=== PATIENT | male | born 1965 | race Caucasian/White ===

== ENCOUNTER → 2017-01-15 | Outpatient (CLI) | payer OTHER ==
[~2017-01-15] MED LIST: CYCL10TA2 PO; HYDR-2762 PO; IBUP-1060 PO; LISI-334 PO; SIMV10TA3 PO; TRAM50TA PO
--- NOTE | 2017-01-16 09:26 | PAIN ---
DATE OF SERVICE: 01/15/2017 PROGRESS NOTE FOR PAIN CLINIC DIAGNOSES: Lumbar radiculopathy with lumbar spinal stenosis, lumbar herniated disk. HISTORY OF PRESENT ILLNESS: The patient is a 51-year-old male who returns for followup, last seen in 10/2015. The patient had undergone epidural steroid injections in the past, did very well with [id number]% improvement and we had temporized him, after that with some Medrol Dosepak and some hydrocodone which he takes only very sparingly. The patient reports that he was doing very well until about the last one month. He stepped off a ladder and missed the last rung on the ladder, landing on his left leg hard ____ his back as well as his left knee and thigh. The patient had some back pain since that time in the low back radiating to the bilateral areas of the gluteus more on the right, actually at this time, but also some numbness in the left leg in the medial aspect of the lower leg as well as in the anterior and medial thigh on the left side. The patient reports sitting from 0 to 6 on a scale of 10, worse with standing and walking, but better with leaning forward, lying down or sitting down. The patient reports it does not awake him from sleep, does not cause any loss of function, but does has some cramping in the lower extremities and gets tight in the low back with the pain recently. The patient reports otherwise no new changes. No new motor or sensory deficits or other complaints. PAST MEDICAL HISTORY: Significant for obesity, hypertension, cigarette smoking, partial replacement of his left knee, and some venous stasis ulcers in the lower leg as well over the past several years. CURRENT MEDICATIONS: Include Flexeril, hydrocodone, simvastatin, lisinopril, tramadol and ibuprofen. ALLERGIES: The patient has no known drug allergies. FAMILY HISTORY: Significant for hypertension only. SOCIAL HISTORY: The patient does not drink alcohol. Quit smoking many years ago, in 1994, when he quit smoking. The patient has two full-time jobs, one in the day and one in the evening, maintains these as well. He is very active with his job, climbing ladders, walking, standing, stooping, and changing positions to a fairly significant extent. REVIEW OF SYSTEMS: The patient's review of systems was updated, positive for those items mentioned in history of present illness. All other systems reviewed and otherwise negative. It is complete, full and well documented on the patient's chart. PHYSICAL EXAMINATION: VITAL SIGNS: The patient's blood pressure 180/93, pulse 69, respirations 18, temperature 97.7 degrees Fahrenheit, height is 5 feet 7 inches, weighs 464 pounds. GENERAL: The patient is awake, alert, oriented, appropriate, very pleasant demeanor. HEENT: Head shows normocephalic, atraumatic. Extraocular movements are intact and symmetrical. Oral cavity, mucous membranes moist and pink. Dentition is intact. NECK: Shows anterior throat supple without palpable lymphadenopathy noted. Swallow reflex is symmetrical. Neck shows full rotational motion of the cervical spine without difficulty including extension and flexion, ____ lateral rotation greater than 45 degrees right and left without difficulty. CHEST: Shows normal on inspection. Breath sounds clear to auscultation bilaterally. HEART: Shows S1 and S2 clear. No murmurs are auscultated. ABDOMEN: Obese, soft, nontender, nondistended. No palpable organomegaly is noted. No rebound or guarding demonstrated. BACK: Shows spine grossly midline. Normal-appearing thoracic kyphosis and some mild flattening of lumbar lordotic curvature. No previous bruises, lesions, rashes or scars are noted. Lumbar paraspinous muscle shows symmetrical on inspection with palpation, is moderately tender, but only in the mid and lower lumbar distribution and lumbar paraspinous muscles only diffusely without radiation, without trigger points. No tenderness over the sacrum or sacroiliac regions. The patient shows good rotational motion both laterally as well as extension and flexion of lumbar spine without difficulty or pain reported. EXTREMITIES: Lower extremities showed deep tendon reflexes 1+/4 in the patellar tendons. Motor exam is approximately 4 on a scale of 5, but equal and symmetrical with dorsiflexion, extension, quadriceps and hamstring flexion. The patient does have an area in the medial left calf that shows some decreased sharp and dull discrimination compared to the rest of the calf and compared to the right side with some numbness in this area and sensation as well. This is roughly from the knee to the ankle on the left side medially only. The patient has some discoloration from hemostasis on both of the lower extremities from the knee down to the ankle as well and is symmetrical. PLAN: Options were discussed with the patient at this time. The patient's old chart was reviewed and his current medication regimen and updated. Current review of systems updated today as well as noted. We will hold on any further injections at this time as he is hoping to avoid this as the pain is not to the point where it was from, the injections were very necessary and helpful. We will try Medrol Dosepak as well as hydrocodone refill 7.5 mg. The patient was given instruction as well as side effects to be aware of each of medications. I encouraged to increase his activity as tolerated and to continue to do stretching exercises as he does throughout his working day already. The patient will follow up if pain returns or becomes worse or more radicular in fashion and was counseled as to this followup as well. EMILY BARRETO MD DR: VIRGIL/marti JOB#: [id number] / [id number]
== END | disposition home or self-care (01) ==
LOC: PNCL 10:10
PROVIDERS: ATTEND Anesthesiology
DX: M54.16 Radiculopathy, lumbar region (principal); M48.06 Spinal stenosis, lumbar region; M51.26 Other intervertebral disc displacement, lumbar region
CPT/HCPCS: 99212

== ENCOUNTER 2018-09-15 21:28 | Emergency (ER) | payer OTHER ==
[~2018-09-15] VITALS: Ht 172.7 cm; Wt 204.1 kg
[2018-09-15 22:48] LABS: BASO # 0.1 x10^3/uL (0.0-0.2); BASO % 1 % (0-3); EOS % 0 % (0-3); HEMATOCRIT 35.2 % (39.0-53.0); HEMOGLOBIN 12.2 g/dL (13.0-17.5); LYMPH # 0.9 x10^3/uL (1.0-4.8); LYMPH % 8 % (24-48); MEAN CORPUSCULAR HEMOGLOBIN 30 pg (25-35); MEAN CORPUSCULAR HGB CONC 35 g/dL (31-37); MEAN CORPUSCULAR VOLUME 87 fL (79-100); MONO # 0.5 x10^3/uL (0.0-1.1); MONO % 4 % (0-9); NEUT % 87 % (31-73); PLATELET COUNT 268 x10^3/uL (140-400); RED BLOOD COUNT 4.04 x10^6/uL (4.30-5.70); RED CELL DISTRIBUTION WIDTH 13.8 % (11.5-14.5); WHITE BLOOD COUNT 11.5 x10^3/uL (4.0-11.0)
[2018-09-15 22:56] LABS: CALCIUM 9.2 mg/dL (8.5-10.1); CREATININE 1.3 mg/dL (0.7-1.3); GFR 58.2; POTASSIUM 4.1 mmol/L (3.5-5.1)
[2018-09-15] MEDS ORDERED: fentaNYL PF VIAL 100 MCG/2 ML VIAL IV ONE (23:00)
[2018-09-15] MEDS ORDERED: LIDO:MAALOX 1:1 20 ML SINGLE DOSE. SWSW ONE (23:00)
[2018-09-15] MEDS ORDERED: IV NORMAL SALINE 1000ML BAG 1,000 ML IV ONE (23:00)
[2018-09-15 23:02] LABS: ALBUMIN 3.4 g/dL (3.4-5.0); ALBUMIN/GLOBULIN RATIO 0.8 (1.0-1.7); TOTAL BILIRUBIN 0.4 mg/dL (0.2-1.0); TOTAL PROTEIN 7.5 g/dL (6.4-8.2)
[2018-09-15 23:13] LABS: % BANDS 2 % (0-9); % BASOS 1 % (0-3); % LYMPHS 6 % (24-48); % MONOS 4 % (0-10); % SEGS 87 % (35-66); PLT ESTIMATE ADEQUATE (ADEQUATE)
--- NOTE | 2018-09-16 00:42 | RAD ---
Clinical History: Right upper quadrant pain Technique: Sonographic examination of the right upper quadrant of the abdomen was performed and multiple static images were obtained. Comparison: none Findings: The liver measures 23 centers in length and is increased echogenicity which further limits ultrasound sensitivity for possible solid liver lesion. Solid mass is not seen. The gallbladder is seen with stones and wall thickening and surrounding fluid. There is no tenderness. The common bile duct is top normal limits in size and measures 6 mm in diameter. The pancreas is not well visualized due to overlying bowel gas but appears within normal limits. The right kidney appears normal and measures 12 cm in length. Impression: 1. Hepatomegaly. 2. Cholecystolithiasis. Probable acute cholecystitis. 3. Fatty infiltration of the liver. Electronically signed by: Mayito Lopez III, MD (09/16/2018 12:39 AM) [facility]
[2018-09-16 01:29] VITALS: BP 150/71
[2018-09-16] MEDS ORDERED: PIPERACILLIN/TAZOBACTAM 3.375 GM in IV NORMAL SALINE 50ML 50 ML IV ONE (01:30)
[2018-09-16] MEDS ORDERED: MORPHINE SULFATE 4 MG/ML VIAL. IV ONE (02:00)
[2018-09-16] MEDS ORDERED: ONDANSETRON PF 4 MG/2 ML VIAL. IV ONE (02:00)
--- NOTE | 2018-09-16 02:06 | PHYS DOC ---
Past Medical History Past Medical History: High Cholesterol, Hypertension, Other Additional Past Medical Histor: HYPOKALEMIA Past Surgical History: Knee Replacement, Other Additional Past Surgical Histo: CARPAL TUNNEL SURGERY Alcohol Use: None Drug Use: None Adult General Chief Complaint Chief Complaint: ABDOMINAL PAIN HPI HPI Patient is a 52 year old male who presents with chief complaint of right upper quadrant abdominal pain. It started his scapula yesterday he ate a pizza and he ate some cheese from [place] where he had recently visited. Now the pain is more in the right upper quadrant is dull worse with eating mild nausea no fever no vomiting he said this feels identical to a gallbladder attack he had a few years ago he tried peppermint tea with no relief Review of Systems Review of Systems Constitutional: Denies fever or chills [] Eyes: Denies change in visual acuity, redness, or eye pain [] HENT: Denies nasal congestion or sore throat [] Respiratory: Denies cough or shortness of breath [] Cardiovascular: No additional information not addressed in HPI [] Musculoskeletal: Denies back pain or joint pain [] Integument: Denies rash or skin lesions [] All other systems were reviewed and found to be within normal limits, except as documented in this note. Current Medications Current Medications Current Medications Medications (Trade) Dose Ordered Sig/Judd Start Time Stop Time Status Last Admin Dose Admin Fentanyl Citrate (Fentanyl 2ml Vial) 50 mcg 1X ONCE 09/15/18 23:00 09/15/18 23:01 DC 09/15/18 22:48 50 MCG Morphine Sulfate (Morphine Sulfate) 4 mg 1X ONCE 09/16/18 02:00 09/16/18 02:01 DC Multi-Ingredient Mouthwash/Gargle (Gi Cocktail) 20 ml 1X ONCE 09/15/18 23:00 09/15/18 23:01 DC 09/15/18 22:48 20 ML Ondansetron HCl (Zofran) 4 mg 1X ONCE 09/16/18 02:00 09/16/18 02:01 DC Piperacillin Sod/ Tazobactam Sod 3.375 gm/Sodium Chloride 50 ml @ 100 mls/hr 1X ONCE 09/16/18 01:30 09/16/18 01:59 DC 09/16/18 01:29 100 MLS/HR Sodium Chloride 1,000 ml @ 1,000 mls/hr 1X ONCE 09/15/18 23:00 09/15/18 23:59 DC 09/15/18 22:49 1,000 MLS/HR Allergies Allergies Allergies Coded Allergies Type Severity Reaction Last Updated Verified No Known Drug Allergies 02/15/15 No Physical Exam Physical Exam Constitutional: Over nourished HENT: Normocephalic, atraumatic, bilateral external ears normal, oropharynx moist, no oral exudates, nose normal. [] Eyes: PERRLA, EOMI, conjunctiva normal, no discharge. [] Neck: Normal range of motion, no tenderness, supple, no stridor. [] Pulmonary: Normal respiratory effort no increased work of breathing no obvious chest wall trauma Abdomen: Bowel sounds normal, soft, right upper quadrant with Garner's tenderness, no masses, no pulsatile masses. [] Skin: Warm, dry, no erythema, no rash. [] Back: No tenderness, no CVA tenderness. [] Extremities: No tenderness, no cyanosis, no clubbing, ROM intact, no edema. [] Neurologic: Alert and oriented X 3, normal motor function, normal sensory function, no focal deficits noted. [] Psychologic: Affect normal, judgement normal, mood normal. [] Current Patient Data Vital Signs Vital Signs Date Time Temp Pulse Resp B/P (MAP) Pulse Ox O2 Delivery O2 Flow Rate FiO2 09/15/18 23:20 22 96 09/15/18 22:48 Room Air 09/15/18 21:55 97.7 64 150/64 (92) 97.7 Lab Values Laboratory Tests Test 09/15/18 22:40 White Blood Count 11.5 x10^3/uL (4.0-11.0) H Red Blood Count 4.04 x10^6/uL (4.30-5.70) L Hemoglobin 12.2 g/dL (13.0-17.5) L Hematocrit 35.2 % (39.0-53.0) L Mean Corpuscular Volume 87 fL (79-100) Mean Corpuscular Hemoglobin 30 pg (25-35) Mean Corpuscular Hemoglobin Concent 35 g/dL (31-37) Red Cell Distribution Width 13.8 % (11.5-14.5) Platelet Count 268 x10^3/uL (140-400) Neutrophils (%) (Auto) 87 % (31-73) H Lymphocytes (%) (Auto) 8 % (24-48) L Monocytes (%) (Auto) 4 % (0-9) Eosinophils (%) (Auto) 0 % (0-3) Basophils (%) (Auto) 1 % (0-3) Neutrophils # (Auto) 10.0 x10^3uL (1.8-7.7) H Lymphocytes # (Auto) 0.9 x10^3/uL (1.0-4.8) L Monocytes # (Auto) 0.5 x10^3/uL (0.0-1.1) Eosinophils # (Auto) 0.0 x10^3/uL (0.0-0.7) Basophils # (Auto) 0.1 x10^3/uL (0.0-0.2) Segmented Neutrophils % 87 % (35-66) H Band Neutrophils % 2 % (0-9) Lymphocytes % 6 % (24-48) L Monocytes % 4 % (0-10) Basophils % 1 % (0-3) Platelet Estimate Adequate (ADEQUATE) Sodium Level 137 mmol/L (136-145) Potassium Level 4.1 mmol/L (3.5-5.1) Chloride Level 100 mmol/L (98-107) Carbon Dioxide Level 29 mmol/L (21-32) Anion Gap 8 (6-14) Blood Urea Nitrogen 20 mg/dL (8-26) Creatinine 1.3 mg/dL (0.7-1.3) Estimated GFR (Cockcroft-Gault) 58.2 BUN/Creatinine Ratio 15 (6-20) Glucose Level 126 mg/dL (70-99) H Calcium Level 9.2 mg/dL (8.5-10.1) Total Bilirubin 0.4 mg/dL (0.2-1.0) Aspartate Amino Transferase (AST) 16 U/L (15-37) Alanine Aminotransferase (ALT) 24 U/L (16-63) Alkaline Phosphatase 78 U/L (46-116) Total Protein 7.5 g/dL (6.4-8.2) Albumin 3.4 g/dL (3.4-5.0) Albumin/Globulin Ratio 0.8 (1.0-1.7) L Lipase 123 U/L (73-393) Laboratory Tests 09/15/18 22:40 Laboratory Tests 09/15/18 22:40 EKG EKG [] Radiology/Procedures Radiology/Procedures [] Impressions: Impression: 1. Hepatomegaly. 2. Cholecystolithiasis. Probable acute cholecystitis. 3. Fatty infiltration of the liver. Electronically signed by: Mayito Lopez III, MD (09/16/2018 12:39 AM) [facility] Course & Med Decision Making Course & Med Decision Making Pertinent Labs and Imaging studies reviewed. (See chart for details) []22-year-old male 470 pounds presenting with cholecystitis. Antibiotics and pain control was given in the emergency room I did speak with our on-call surgeon Dr. PINTO I also spoke with our nursing measurement supervisor who advised me that the weight limit for the operating table was 450 in light of that Dr. Pinto has suggested transfer to another hospital. I spoke with [facility] accepting doctor SAUL 130 AM PT AWARE OF [facility] and agreeable to transfer. Dragon Disclaimer Dragon Disclaimer This electronic medical record was generated, in whole or in part, using a voice recognition dictation system. Departure Departure Impression: Primary Impression: Cholecystitis Disposition: 02 TRANSFER T-[facility] Condition: STABLE Referrals: ELLIE BALDWIN MD (PCP) SHERINE VALLE MD Sep 16, 2018 02:06
== END 2018-09-16 02:58 | disposition short-term general hospital (02) ==
LOC: ER 21:28
DX: K81.9 Cholecystitis, unspecified (principal); I10 Essential (primary) hypertension; E78.00 Pure hypercholesterolemia, unspecified
CPT/HCPCS: 36415; 76705; 80053; 83690; 85007; 85025; 96365; 96375; 99285; J2270; J2405; J2543; J3010; J7030

== ENCOUNTER → 2019-10-08 | Outpatient (CLI) | payer OTHER ==
[~2019-10-08] MED LIST changes: -HYDR-2762 PO; +HYDR-2765 PO; +SIMV10TA15 PO; -SIMV10TA3 PO
--- NOTE | 2019-10-08 10:29 | KCIC ---
Examination: MRI of the left elbow without contrast HISTORY: History of left elbow pain, injury, strain 2 months back, pain not improving COMPARISON: None available TECHNIQUE: Multiplanar, multisequence MR imaging of the left elbow was performed without contrast FINDINGS: There is mild increased T2 signal identified in the triceps tendon at its attachment to the olecranon process likely subtle partial tear or tendinosis. Mild joint space loss identified in the elbow joint likely degeneration. Minimal elbow joint effusion is identified. There is increased T2 signal identified in the common extensor tendon attachment to the lateral epicondyle likely partial tear/lateral epicondylitis. The radial collateral ligament, lateral ulnar collateral ligament appear intact. The ulnar collateral ligament appears intact. The distal attachment of the brachialis, biceps tendon grossly appears intact. Mild soft tissue edema identified superficial to the triceps tendon. IMPRESSION: 1. Increased T2 signal identified in the common extensor tendon at its attachment to the lateral epicondyle likely partial tear/ lateral epicondylitis. 2. Mild increased T2 signal identified in the triceps tendon attachment to the olecranon medially could be subtle partial tear or tendinosis. Electronically signed by: Juan Ozuna MD (10/08/2019 10:27 AM) [id number]
== END | disposition home or self-care (01) ==
LOC: KCIC MRI 08:25
PROVIDERS: ATTEND Nurse Practitioner Gerontology
DX: M25.422 Effusion, left elbow (principal); M79.89 Other specified soft tissue disorders
CPT/HCPCS: 73221